=== PATIENT | female | born 1955 | race American Indian/Alaskan Native ===

== ENCOUNTER 2017-01-29 06:05 | Inpatient (IN) | payer MEDICAID ==
[~2017-01-29 06:05] MED LIST: ANCEF/STERILE WATER 2 GM/20 ML 2 GM/20 ML SYRINGE IV NR; NACL 0.9% 1000 ML 1,000 ML IV SCH; NACL P/F VIAL (10 ML) ONE; PEPCID PO NR
[2017-01-29] MEDS ORDERED: NACL BACTERIOSTATIC INFILTRATI ONE (06:47)
--- NOTE | 2017-01-29 07:30 | Anesthesia Consultation ---
Anesthesia Consult and Med Hx Date of service: 01/29/17 - Airway Anesthetic Teeth Evaluation: Poor ROM Head & Neck: Adequate Mental/Hyoid Distance: Adequate Mallampati Class: Class II Intubation Access Assessment: Probably Good - Pulmonary Exam CTA: Yes - Cardiac Exam Cardiac Exam: RRR - Pre-Operative Health Status ASA Pre-Surgery Classification: ASA4 Proposed Anesthetic Plan: General, MAC - Pulmonary Hx Smoking: Yes (quit in 11/2016) COPD: Yes Home Oxygen Therapy: No Hx Sleep Apnea: No - Cardiovascular System Hx Hypertension: Yes (5YRS) Hx Coronary Artery Disease: No - Central Nervous System Hx Seizures: No CVA: No - Endocrine Hx Renal Disease: Yes (last dialysis sunday) Hx End Stage Renal Disease: Yes Hx Non-Insulin Dependent Diabetes: No Hx Hypothyroidism: No - Other Systems Hx Cancer: No Hx Obesity: Yes
--- NOTE | 2017-01-29 07:31 | Anesthesia Day of Surgery ---
Anesthesia Day of Surgery - Day of Surgery Patient Examined: Yes Patient H&P Reviewed: Yes Patient is NPO: Yes
[2017-01-29] MEDS ORDERED: DIPRIVAN 10 MG/ML IV ONE ×2 (07:56→08:46)
[2017-01-29] MEDS ORDERED: SUBLIMAZE ONE (07:56)
[2017-01-29] MEDS ORDERED: VERSED ONE (07:56)
[2017-01-29] MEDS ORDERED: ePHEDrine SULFATE ONE (08:34)
[2017-01-29] MEDS ORDERED: SODIUM BICARBONATE IV ONE (08:42)
[2017-01-29] MEDS ORDERED: SODIUM BICARBONATE ONE ×2 (08:47→08:48)
[2017-01-29] MEDS ORDERED: HEPARIN 10,000 UNITS/10 ML 2,000 UNIT in NACL 0.9% 500 ML 500 ML IR ONE (09:07)
[2017-01-29] MEDS ORDERED: RIFADIN 600 MG in NACL 0.9% 50 ML IR ONE (09:07)
[2017-01-29] MEDS ORDERED: MARCAINE 0.5% INFILTRATI ONE (09:11)
[2017-01-29] MEDS ORDERED: NACL 0.9% IR ONE (09:11)
[2017-01-29] MEDS ORDERED: XYLOCAINE MPF 2% ONE (09:12)
[2017-01-29] MEDS ORDERED: ZEMURON IV ONE (09:12)
[2017-01-29] MEDS ORDERED: QUELICIN ONE (09:12)
[2017-01-29] MEDS ORDERED: DECADRON ONE (09:12)
[2017-01-29] MEDS ORDERED: NORCO 5/325 PO PRN (09:14)
[2017-01-29] MEDS ORDERED: DILAUDID IV PRN (09:14)
[2017-01-29] MEDS ORDERED: ZOFRAN IV PRN (09:14)
--- NOTE | 2017-01-29 10:24 | Short Stay Summary ---
Short Stay Documentation Date of service: 01/29/17 Narrative H&P: See H&P - History H&P: obtained from office - Allergies and Medications Current Medications: Allergies No Known Allergies Allergy (Unverified 01/25/17 09:02) Home Medications Medication Instructions Recorded Confirmed Last Taken Type ALBUTEROL Inhaler [Proair] 2 puff IH QID PRN 01/25/17 01/25/17 01/28/17 18:00 History Aspirin [Adult Low Dose Aspirin EC] 81 mg PO QDAY 01/25/17 01/25/17 01/28/17 History AtorvaSTATin [Lipitor] 40 mg PO QDAY 01/25/17 01/25/17 01/28/17 History Calcium Acetate [Calcium Acetate] 667 mg PO TID 01/25/17 01/25/17 01/28/17 History Gabapentin [Gabapentin] 300 mg PO BID 01/25/17 01/29/17 01/27/17 History Ipratropium (Nf) [Atrovent HFA 2 puff IH BID 01/25/17 01/25/17 01/28/17 19:30 History 17MCG/PUFF] Midodrine HCl 10 mg PO QDAY 01/25/17 01/29/17 01/28/17 09:30 History Active Medications Acetaminophen/Hydrocodone Bitart ([place] 5/325) 1 each PO ONCE PRN PRN Reason: Pain, Moderate (4-6) Stop: 01/29/17 18:00 Famotidine (Pepcid) 20 mg PO PREOP NR Stop: 01/29/17 23:00 Last Admin: 01/29/17 07:20 Dose: 20 mg Hydromorphone HCl (Dilaudid) 0.25 mg IV Q10MIN PRN PRN Reason: Pain, Moderate (4-6) Stop: 01/29/17 18:00 Cefazolin Sodium (Ancef/Sterile Water 2 Gm/20 Ml) 2 gm in 20 mls @ 80 mls/hr IV PREOP NR PRN Reason: Protocol Stop: 01/29/17 23:59 Sodium Chloride (Nacl 0.9% 1000 Ml) 1,000 mls @ 42 mls/hr IV DIRECT ALEXANDER Last Admin: 01/29/17 07:30 Dose: 42 mls/hr Ondansetron HCl (Zofran) 4 mg IV ONCE PRN PRN Reason: Nausea And Vomiting Stop: 01/29/17 18:00 - Brief post op/procedure progress note Date of procedure: 01/29/17 Pre-op diagnosis: End-Stage Renal Disease Post-op diagnosis: same Procedure: Creation of Left Brachial Artery to Axillary Vein AV Graft with 6 mm Bovine Graft Anesthesia: BEN Surgeon: AMBER SANDHU Estimated blood loss: minimal Pathology: none Condition: stable - Disposition Condition at discharge: Good Disposition: DISCHARGED TO HOME OR SELFCARE Short Stay Discharge Plan Activity: other (no heavy lifting with left arm) Wound: open to air, keep clean and dry, other (okay to wash the wound with soap and water but do not soak in water) Follow up with: AMBER SANDHU MD [Staff Physician] - 14 Days Prescriptions: HYDROcodone/APAP 7.5-325 [Tarlton 7.5/325] 1 each PO Q6HR PRN #60 tablet PRN Reason: Pain
--- NOTE | 2017-01-29 10:27 | Operative Report ---
Operative Report Operative Report: Date of procedure: 01/29/2017 Pre-operative diagnosis: End-Stage Renal Disease Post-operative diagnosis: Same Procedure(s): 1. Creation of Left Brachial Artery to Axillary Vein AV Graft with 6 mm Bovine Graft Surgeon: Fernando Salazar MD Watch Leader: None Anesthesia: General Endotracheal Anesthesia EBL: Minimal Counts: Correct Complications: None Condition: Stable Findings: Successful Creation of Left Arm AV Graft Specimen: None Indication: The patient is a 61-year-old female with a history of end-stage renal disease who is currently on hemodialysis through a right internal jugular permacath. She is in need of long-term access and a vein size and demonstrated that her veins were too small for creation of an AV fistula. She was offered the creation of an AV graft. She was given the risks, benefits, and alternative procedures and consented to procedure. Description of Procedure: The patient was brought to the operating room and laid in supine position after general endotracheal anesthesia was achieved the left arm was prepped and draped in normal sterile fashion. A longitudinal incision was made on the medial aspect of the arm just proximal to the antecubital crease and carried down to the brachial artery using sharp dissection. The brachial artery was dissected out circumferentially both proximally and distally and controlled with vessel loops. A second incision was created in longitudinal fashion on the medial aspect of the arm just distal to the axillary crease and carried down to the axillary vein using sharp dissection. Axillary vein was dissected out circumferentially and controlled with a vessel loop. I then used a Aicha- Wick tunneler to tunnel from the brachial artery incision to the axillary vein incision and then pulled a 6 mm bovine through the tunnel. I infused with heparinized saline to ensure that it was not twisted or kinked. I put the brachial artery vessel loops on tension controlling the flow and then created an arteriotomy using an 11 blade and Campbell scissors. I beveled the graft and created an end-to-side anastomosis using 6-0 Prolene running fashion. I clamped the graft just proximal to the anastomosis and then released the vessel loops restoring flow in the brachial artery. I placed quick clot in incision to achieve hemostasis. I cut the proximal end of the graft to the appropriate length and beveled the graft in preparation for a venous anastomosis. I controlled the axillary vein a Satinsky clamp and created a venotomy using an 11 blade and Campbell scissors. I created an end to side anastomosis using a 6-0 Prolene in running fashion. Prior to completing the anastomosis I flushed the graft to ensure there was no thrombus and then completed the anastamosis. I released all clamps allowing flow into the AV graft which had an excellent thrill. I packed the wound with quick clot to achieve hemostasis. I anesthetized both wounds with Marcaine and then closed both wounds in 2 layers using 3-0 Vicryl in running fashion in the deep dermal layer and 4-0 Monocryl in running fashion the subcuticular layer. I dressed both wounds with Surgicel. The patient tolerated the procedure well all sponge needle and instrument counts were correct the patient was taken to recovery in stable condition.
[2017-01-29] MEDS ORDERED: ROMAZICON IV ONE (10:29)
[2017-01-29] MEDS ORDERED: NARCAN 0.4 MG/1 ML ONE (10:29)
[2017-01-29] MEDS ORDERED: BLOXIVERZ ONE (10:41)
[2017-01-29] MEDS ORDERED: ROBINUL ONE (10:42)
--- NOTE | 2017-01-29 11:01 | Progress Note ---
Subjective Date of service: 01/29/17 Principal diagnosis: Delayed emergence from anesthesia Interval history: 61 yo s/p left creation of AV fistula done under general anesthesia. Initially LMA #4 tried unable to get good seal then switched to LMA #5. Still unable to get a good seal. Intubated the patient. Post op patient not waking up. Not taking in good tidal volumes. Given Narcan, Flumazenil and Reversal agent for paralytics. Patient still not breathing on her own. Decided to transport patient to PACU on ventilator until she is more awake and breathing on her own. Objective - Constitutional Vitals: Vital Signs - 12hr 01/29/17 01/29/17 01/29/17 06:45 06:50 07:54 Temperature 99.1 F 99.1 F Pulse Rate 76 99 H 99 H Respiratory 16 16 Rate Blood Pressure 122/64 122/64 O2 Sat by Pulse 88 99 Oximetry - Labs CBC & Chem 7: 01/29/17 06:55 Labs: Abnormal lab results 01/29/17 Range/Units 07:04 POC Glucose 114 H (70-105)
[2017-01-29] MEDS ORDERED: PROVENTIL IH ONE (11:46)
--- NOTE | 2017-01-29 12:34 | Post Anesthesia Evaluation ---
- Post Anesthesia Evaluation Patient Participated: Yes Airway Patent: Yes Stable Respiratory Function: Yes Temp > 96.8F: Yes Pain Manageable: Yes Adequeate Hydration: Yes Anesthesia Complications: No Block Receding Appropriately: Not Applicable
--- NOTE | 2017-01-29 21:12 | Admit Criteria Form ---
Admission Criteria Documentation: AMBULATORY SURGERY EXCEPTION CRITERIA Ambulatory Surgery Exception Criteria ( Place 'X' for any and all applicable criteria): Surgery or procedure performed on ambulatory basis may require inpatient stay for[A] ANY ONE of the following(1)(2)(3)(4)(5)(6)(7)(8)(9): [] I. A preoperative situation, condition, or finding that warrants inpatient stay as indicated by ANY ONE of the following: [] a) Inpatient care needed because of severity of a disease or condition rather than the surgery (eg, severe cardiac or respiratory disease, severe infection) (15) (16 ) (17) (18) [] b) Emergent procedure (eg, angioplasty for acute ischemia)(19) [] c) Complex surgical approach or situation as indicated by ANY ONE of the following(3): [] i) Open approach needed instead of usual endoscopic, transcatheter, or other less invasive procedure [] ii) Difficult approach because of previous operation [] iii) Airway monitoring required after open neck procedures(20)(21) [] iv) Large mass requiring unusually extensive dissection [] v) Additional complicating feature requiring inpatient care (eg, drain management)(22(23): [] d) Major surgery in a pt with high anesthetic risk as indicated by ANY ONE of the following (2)(3)(5)(7)(8): [] i) ASA risk class III or higher (severe systemic disease impairing function) [D] [] ii) Advanced age (eg, older than 85 years)(14)(24) [] iii) Symptomatic heart failure(25) [] iv) Symptomatic asthma or COPD(8)(21) [] v) Morbid obesity with hemodynamic or respiratory problems(20)( 21)(26)(27) [] vi) Obstructive sleep apnea(20)(21) [] vii) Former premature infants who are younger than 60 weeks [] viii) High risk for severe postoperative abnormalities (eg, severe postoperative hypocalcemia after parathyroidectomy for severe hyperparathyroidism)(27)( 28) [] ix) Unstable angina(25) [] e) Drug-related risk requiring inpatient stay as indicated by ANY ONE of the following(5)(10)(14)(32)(33) [] i) Procedure requires discontinuing drugs or other therapy (eg , antiarrhythmic medication, antiseizure medication), which necessitates inpatient observation or treatment.(18)(31) [] ii) Major surgery and high risk drug use as indicated by ANY ONE of the following: [] 1) Active abuse of cocaine or similar drug [] 2) Monoamine oxidase inhibitor use [] 3) Other drug identified as posing risk [] f) Inadequate outpatient care situation as indicated by ANY ONE of the following(5)(10)(14)(32)(33) [] i) Patient lives remote from medical facility and procedure has urgent complication potential, and temporary nearby residence cannot be arranged [] ii) Patient will have postprocedure incapacitation and inadequate assistance at home, or alternative level of care cannot be arranged. [] iii) Patient will have long general anesthesia or procedure side effect resolution time, and competent person to stay with patient on first postoperative night at home or alternative level of care cannot be arranged. []iv) Other inadequate outpatient situation that cannot be handled by other means [X] II. A perioperative event, condition, or finding that warrants inpatient stay as indicated by ANY ONE of the following (1)(2)(3): [X] a) Inadequate physiologic recovery: cardiovascular, respiratory, or hemodynamic status not normal or near preoperative baseline(18) [] b) Hemodynamic instability [] c) Patient not alert with near normal or baseline mental status [] d) Temperature not normal or as expected and not appropriate for outpatient treatment of condition [] e) Ambulatory or appropriate activity level status not yet achieved post procedure [E](34)(35)(36) [] f) Operative site not appropriate (eg, unexpected or excessive drainage or bleeding) [] g) Postoperative effects not resolved or adequately managed (eg, significant pain or vomiting not appropriate for outpatient or next level of care)(10)(12) [] h) Complicating features requiring inpatient care as indicated by ANY ONE of the following(37): [] i) Severe complications of procedure (eg, bowel injury, airway compromise, vascular injury,severe hemorrhage) [] ii) Extensive (eg, dissection far beyond usual scope of procedure ) or prolonged (eg, 120 minutes beyond usual) surgery needed requiring inpatient postoperative care [] iii) Conversion to an open or complex procedure that requires inpatient care (eg, open vs laparoscopic cholecystectomy, abdominal vs vaginal hysterectomy)(38) [] iv) Comorbid condition or test result identified during or post procedure that requires inpatient care (7) [] v) Malignant hyperthermia(30) [] vi) Other complicating feature requiring inpatient care(22)(23) Inpatient stay may be needed until ALL of the following are present (1)(2)(3)(4) (5)(6)(10)(14)(33)(40): []a) Physiologic recovery: cardiovascular, respiratory, and hemodynamic status normal or near preoperative baseline []b) Hemodynamic stability []c) Patient alert, with near normal or baseline mental status []d) Temperature appropriate: patient afebrile or temperature appropriate for outpt treatment of condition []e) Activity level appropriate: ambulatory or appropriate activity level post procedure []f) Operative site appropriate as indicated by ALL of the following: []i) Site dry or with expected drainage []ii) Any blood noted is as expected for procedure. []g) Postoperative effects resolved or managed as indicated by ALL of the following: []i) Pain management appropriate for outpatient (or next level of) care(10) []ii) Minimal nausea and vomiting: if present, successfully treated with oral medication(12) []iii) Headache, dizziness, or drowsiness (if present) are mild. []h) Voiding status acceptable as indicated by ANY ONE of the following: []i) Voiding spontaneously []ii) No voiding but instructions given for follow-up in 6 to 8 hours []iii) Urinary catheter in place, and instructions given for follow-up []i) Complicating features requiring inpatient care manageable at a lower level of care(37) []j) Comorbid conditions manageable at a lower level of care(37) The original [employer] content created by [employer] has been revised. The portions of the content which have been revised are identified through the use of italic text or in bold, and [employer] has neither reviewed nor approved the modified material. All other unmodified content is copyright [employer]. Please see references footnoted in the original [employer] edition 2016 Admission Criteria Met: Yes
--- NOTE | 2017-01-29 23:57 | Event Note ---
Date: 01/29/17 See H/p in reports Ac resp failure Copd exacerbation Admitted from PACU after AV fistula creation b/c the patient was persistently hypoxic HLD Hypotension
[2017-01-30] MEDS ORDERED: DULCOLAX PR PRN (00:03)
[2017-01-30] MEDS ORDERED: MILK OF MAGNESIA PO PRN (00:03)
[2017-01-30] MEDS ORDERED: TYLENOL PO PRN (00:03)
[2017-01-30] MEDS ORDERED: PERCOCET 5/325 PO PRN (00:03)
[2017-01-30] MEDS ORDERED: ZOFRAN IV PRN (00:03)
[2017-01-30] MEDS ORDERED: DILAUDID IV PRN (00:03)
[2017-01-30] MEDS ORDERED: DUONEB 0.5 MG-3 MG/3 ML SOLN IH PRN (00:05)
[2017-01-30] MEDS ORDERED: PROVENTIL IH PRN (00:17)
--- NOTE | 2017-01-30 00:40 | History and Physical Report ---
CHIEF COMPLAINT: 1. Shortness of breath. 2. Persistent decreased oxygen saturations postop. HISTORY OF PRESENT ILLNESS: A 61-year-old -Martiniquais female with longstanding history of smoking about 40 years, stopped this year 11/2016, could not be extubated after surgery. With difficulty the patient was extubated and postoperatively, the patient has been persistently hypoxic, needed to 2-3 liters nasal cannula oxygen. The patient has severe COPD and the patient is on inhalers, Atrovent and albuterol inhalers on a regular basis. Does not have any sample checker. Consistent complaint is shortness of breath and wheezing. No fever, no chills, no cough productive of sputum. Sats are running around . PAST MEDICAL HISTORY: Significant for hyperlipidemia, hypotension, COPD, peripheral neuropathy, end-stage renal disease. CURRENT MEDICATIONS: Albuterol inhaler 2 puffs q.i.d., aspirin 81 mg daily, Lipitor 40 mg daily, gabapentin 300 mg b.i.d., Atrovent inhalers 2 puffs b.i.d., midodrine 10 mg daily. SOCIAL HISTORY: Smoking for 40 years, stopped 2 months ago in 11/2016. Alcohol occasionally. FAMILY HISTORY: Significant for hypertension. REVIEW OF SYSTEMS: Significant for shortness of breath, hypoxia, wheezing. Otherwise, review of systems is essentially negative. PHYSICAL EXAMINATION: GENERAL: Elderly female, cooperative during examination. VITAL SIGNS: Blood pressure is , temperature is 97.4, pulse is 72, respiratory rate is 20. HEENT: Unremarkable. Pupils equal and reactive. NECK: Supple, no lymphadenopathy, no thyromegaly. Mild use of accessory muscles of respiration present. CHEST AND LUNGS: Bilateral inspiratory and expiratory rhonchi present. Moderate air entry. CARDIOVASCULAR: S1, S2 heard. No gallop, no murmur, no rub. Apical impulse in left fifth intercostal space and midclavicular line. ABDOMEN: Soft and benign. No hepatosplenomegaly. No guarding. No rigidity. Hernial orifices are normal. EXTREMITIES: Good pedal pulses. No pedal edema. AV fistula placed. CENTRAL NERVOUS SYSTEM: Alert and oriented x 4, nonfocal exam. LABORATORY DATA: Pending. ASSESSMENT AND PLAN: 1. Acute respiratory failure secondary to chronic obstructive pulmonary disease. The patient needs DuoNeb, IV Solu-Medrol, and IV Levaquin and oxygen. The patient may be weaned off in a couple of days and discharged in 48 hours. 2. Hypotension. Continue midodrine. 3. Hyperlipidemia. We will hold Lipitor 40 mg daily. 4. End-stage renal disease. Continue calcium acetate. Also, Nephrology consul. 5. Deep venous thrombosis prophylaxis, SCDs only. No heparin or Lovenox. 6. Peripheral neuropathy. Continue gabapentin 300 mg twice a day. In summary, the patient has acute respiratory failure and COPD exacerbation. The patient to be on DuoNeb, Solu-Medrol, and IV Levaquin. Possible admission for 24-48 hours. The patient may improve well because the patient was asymptomatic before surgery. [facility]# [id number] GIANCARLO/JOSHUA
[2017-01-30] MEDS ORDERED: PEPCID IV SCH (01:00)
[2017-01-30] MEDS ORDERED: NACL 0.9% 1000 ML 1,000 ML IV SCH (01:00)
--- NOTE | 2017-01-30 01:32 | Admit Criteria Form ---
Admission Criteria Documentation: AMBULATORY SURGERY EXCEPTION CRITERIA Ambulatory Surgery Exception Criteria ( Place 'X' for any and all applicable criteria): Surgery or procedure performed on ambulatory basis may require inpatient stay for[A] ANY ONE of the following(1)(2)(3)(4)(5)(6)(7)(8)(9): [X] I. A preoperative situation, condition, or finding that warrants inpatient stay as indicated by ANY ONE of the following: [] a) Inpatient care needed because of severity of a disease or condition rather than the surgery (eg, severe cardiac or respiratory disease, severe infection) (15) (16 ) (17) (18) [] b) Emergent procedure (eg, angioplasty for acute ischemia)(19) [] c) Complex surgical approach or situation as indicated by ANY ONE of the following(3): [] i) Open approach needed instead of usual endoscopic, transcatheter, or other less invasive procedure [] ii) Difficult approach because of previous operation [] iii) Airway monitoring required after open neck procedures(20)(21) [] iv) Large mass requiring unusually extensive dissection [] v) Additional complicating feature requiring inpatient care (eg, drain management)(22(23): [X] d) Major surgery in a pt with high anesthetic risk as indicated by ANY ONE of the following (2)(3)(5)(7)(8): [X] i) ASA risk class III or higher (severe systemic disease impairing function) [D] [] ii) Advanced age (eg, older than 85 years)(14)(24) [] iii) Symptomatic heart failure(25) [] iv) Symptomatic asthma or COPD(8)(21) [] v) Morbid obesity with hemodynamic or respiratory problems(20)( 21)(26)(27) [] vi) Obstructive sleep apnea(20)(21) [] vii) Former premature infants who are younger than 60 weeks [] viii) High risk for severe postoperative abnormalities (eg, severe postoperative hypocalcemia after parathyroidectomy for severe hyperparathyroidism)(27)( 28) [] ix) Unstable angina(25) [] e) Drug-related risk requiring inpatient stay as indicated by ANY ONE of the following(5)(10)(14)(32)(33) [] i) Procedure requires discontinuing drugs or other therapy (eg , antiarrhythmic medication, antiseizure medication), which necessitates inpatient observation or treatment.(18)(31) [] ii) Major surgery and high risk drug use as indicated by ANY ONE of the following: [] 1) Active abuse of cocaine or similar drug [] 2) Monoamine oxidase inhibitor use [] 3) Other drug identified as posing risk [] f) Inadequate outpatient care situation as indicated by ANY ONE of the following(5)(10)(14)(32)(33) [] i) Patient lives remote from medical facility and procedure has urgent complication potential, and temporary nearby residence cannot be arranged [] ii) Patient will have postprocedure incapacitation and inadequate assistance at home, or alternative level of care cannot be arranged. [] iii) Patient will have long general anesthesia or procedure side effect resolution time, and competent person to stay with patient on first postoperative night at home or alternative level of care cannot be arranged. []iv) Other inadequate outpatient situation that cannot be handled by other means [] II. A perioperative event, condition, or finding that warrants inpatient stay as indicated by ANY ONE of the following (1)(2)(3): [] a) Inadequate physiologic recovery: cardiovascular, respiratory, or hemodynamic status not normal or near preoperative baseline(18) [] b) Hemodynamic instability [] c) Patient not alert with near normal or baseline mental status [] d) Temperature not normal or as expected and not appropriate for outpatient treatment of condition [] e) Ambulatory or appropriate activity level status not yet achieved post procedure [E](34)(35)(36) [] f) Operative site not appropriate (eg, unexpected or excessive drainage or bleeding) [] g) Postoperative effects not resolved or adequately managed (eg, significant pain or vomiting not appropriate for outpatient or next level of care)(10)(12) [] h) Complicating features requiring inpatient care as indicated by ANY ONE of the following(37): [] i) Severe complications of procedure (eg, bowel injury, airway compromise, vascular injury,severe hemorrhage) [] ii) Extensive (eg, dissection far beyond usual scope of procedure ) or prolonged (eg, 120 minutes beyond usual) surgery needed requiring inpatient postoperative care [] iii) Conversion to an open or complex procedure that requires inpatient care (eg, open vs laparoscopic cholecystectomy, abdominal vs vaginal hysterectomy)(38) [] iv) Comorbid condition or test result identified during or post procedure that requires inpatient care (7) [] v) Malignant hyperthermia(30) [] vi) Other complicating feature requiring inpatient care(22)(23) Inpatient stay may be needed until ALL of the following are present (1)(2)(3)(4) (5)(6)(10)(14)(33)(40): []a) Physiologic recovery: cardiovascular, respiratory, and hemodynamic status normal or near preoperative baseline []b) Hemodynamic stability []c) Patient alert, with near normal or baseline mental status []d) Temperature appropriate: patient afebrile or temperature appropriate for outpt treatment of condition []e) Activity level appropriate: ambulatory or appropriate activity level post procedure []f) Operative site appropriate as indicated by ALL of the following: []i) Site dry or with expected drainage []ii) Any blood noted is as expected for procedure. []g) Postoperative effects resolved or managed as indicated by ALL of the following: []i) Pain management appropriate for outpatient (or next level of) care(10) []ii) Minimal nausea and vomiting: if present, successfully treated with oral medication(12) []iii) Headache, dizziness, or drowsiness (if present) are mild. []h) Voiding status acceptable as indicated by ANY ONE of the following: []i) Voiding spontaneously []ii) No voiding but instructions given for follow-up in 6 to 8 hours []iii) Urinary catheter in place, and instructions given for follow-up []i) Complicating features requiring inpatient care manageable at a lower level of care(37) []j) Comorbid conditions manageable at a lower level of care(37) The original [employer] content created by [employer] has been revised. The portions of the content which have been revised are identified through the use of italic text or in bold, and [facility] [employer] has neither reviewed nor approved the modified material. All other unmodified content is copyright [employer]. Please see references footnoted in the original [employer] edition 2016 Admission Criteria Met: Yes
[2017-01-30] MEDS: DUONEB 0.5 MG-3 MG/3 ML SOLN IH SCH ×4 (01:56→21:49)
[2017-01-30 02:00] LABS: Basophils % (Auto) 0.4 % (0.0-1.8); Mean Corpuscular HGB Conc 29 % (30-34); Mean Corpuscular Hemoglobin 27 pg (28-32); Mean Corpuscular Volume 94 fl (79-97); Red Blood Count 2.71 M/mm3 (3.65-5.03); Red Cell Distribution Width 19.1 % (13.2-15.2); White Blood Count 10.7 K/mm3 (4.5-11.0)
[2017-01-30 02:01] LABS: Hematocrit 25.6 % (30.3-42.9); Hemoglobin 7.3 gm/dl (10.1-14.3)
[2017-01-30 02:20] LABS: Albumin 2.6 g/dL (3.9-5); Albumin/Globulin Ratio 0.5 %; BUN/Creatinine Ratio 9.36; Bilirubin,Total 0.2 mg/dL (0.1-1.2); Chloride 98.7 mmol/L (98-107); Potassium 5.2 mmol/L (3.6-5.0); Total Protein 7.5 g/dL (6.3-8.2)
[2017-01-30 02:37] LABS: ISTAT Base Excess -1; ISTAT HCO3 28.3; ISTAT PCO2 89.5 (35-45); ISTAT PH 7.108 (7.35-7.45); ISTAT PO2 120 (80-105); ISTAT SO2 96; ISTAT TCO2 31
[2017-01-30 03:27] LABS: ISTAT Base Excess -1; ISTAT HCO3 28.1; ISTAT PCO2 87.1 (35-45); ISTAT PH 7.117 (7.35-7.45); ISTAT PO2 73 (80-105); ISTAT SO2 87; ISTAT TCO2 31
[2017-01-30 03:57] LABS: Platelet Count 181 K/mm3 (140-440)
[2017-01-30] MEDS: PHOSLO PO SCH ×2 (08:00→11:57)
[2017-01-30] MEDS ORDERED: LEVAQUIN 750MG/150ML 750 MG/150 ML BAG IV SCH (08:00)
[2017-01-30] MEDS ORDERED: NEURONTIN PO SCH (10:00)
[2017-01-30] MEDS ORDERED: PROAMATINE PO SCH (10:00)
[2017-01-30] MEDS ORDERED: LEVAQUIN 500MG/100ML 500 MG/100 ML BAG IV SCH (12:00)
--- NOTE | 2017-01-30 13:08 | Discharge Summary ---
Providers - Providers Date of Admission: 01/29/17 17:30 Date of discharge: 01/31/17 Attending physician: FERNANDO SALAZAR 01/30/17 00:03 Consult to Physician [CONS] Routine Consulting Provider: KATHLEEN RIOS Reason For Exam: Av fistula Place consult to:: DR Christie Notified:: a service Phone number called:: [phone] Was contact made?: Yes If yes, spoke with:: justice Time called:: 08:31 Primary care physician: PASSENGER SOLICITOR Hospitalization Condition: Good Hospital course: Patient is a 61-year-old woman with day history of COPD, dyslipidemia and end- stage renal disease who is currently on hemodialysis through a right internal jugular permacath; she presented to [facility] for creation of a left upper arm AV graft by Dr. Fernando Salazar. Patient was intubated for the procedure and postop she was not waking up, not taking good tidal volumes; she was given Narcan, flumazenil, and Reversal agent for paralytics; however, she still wasn't waking up. She was sent to PACU on ventilator admission to ICU where she was extubated. She was sent to the medical floor yesterday on BiPAP, and she was weaned off BiPAP but she still oxygen and will try to set that up to be discharged home today. She has hemodialysis tomorrow at [facility] and she wants to go home today. Dr. Fernando Salazar is already discharged tomorrow once oxygen has been set up. Recorded pulse ox 84% on room air. 1. Acute hypoxic respiratory failure due to COPD exacerbation 2. Acute COPD exacerbation 3. End-stage renal disease status post creation of left arm AV graft 4. Morbid obesity BMI 48.2 Hct dropped most likely Anemia related to ESRD, I recommended blood transfusion but family and patient do not want want blood transfusion, instead they want to go to [place] for HD tomorrow and get blood there. Risk explained and they voiced understanding. Disposition: DC/TX HOME UNDER HOME HEALTH Time spent for discharge: 37 minutes Core Measure Documentation - Palliative Care Palliative Care/ Comfort Measures: Not Applicable - Core Measures Any of the following diagnoses?: none - VTE Discharge Requirements Deep Vein Thrombosis/Pulmonary Embolism Present on Admission: No Has pt received <5 days of overlap therapy or INR<2.0: No Anticoagulant overlap therapy prescribed at discharge: No Contraindication No Overlap Therapy order at DC: Not Indicated Exam - Physical Exam Narrative exam: GEN: WDWN, NAD, AWAKE, ALERT, ORIENTATED 3 CVS: RRR, NORMAL S1S2 LUNGS/CHEST: Wheezing bilaterally, NORMAL CHEST EXPANSION B, GOOD AIR ENTRY B ABD: SOFT NTND, GBS, NO REBOUND OR GUARDING MSK: FROM X 4 EXTREMITIES NEURO: CN 2-12 GROSSLY INTACT, NO new FOCAL DEFICITS PSY: CALM - Constitutional Vitals: Temp Pulse Resp BP Pulse Ox 97.4 F L 69 24 110/48 100 01/30/17 08:00 01/30/17 08:40 01/30/17 08:40 01/30/17 08:00 01/30/17 10:58 Plan Activity: no driving until cleared by PCP (no strenous activites until cleared by PCP. ) Diet: renal Special Instructions: home oxygen via Durable Medical Equipment Needed Upon Discharge: Oxygen, Nebulizer Follow up with: FERNANDO SALAZAR MD [Staff Physician] - 14 Days Forms: Outpatient Surgery DC Inst. Prescriptions: RX: ALBUTEROL NEB's [Proventil 0.083% NEBS] 2.5 mg IH Q3HRT PRN #30 nebu PRN Reason: Shortness Of Breath RX: Azithromycin [Zithromax Z-ADOLFO] 1 dose PO DAILY #1 pack HYDROcodone/APAP 7.5-325 [[place] 7.5/325] 1 each PO Q6HR PRN #60 tablet PRN Reason: Pain methylPREDNISolone [Medrol] 1 dose PO DAILY #1 pack
--- NOTE | 2017-01-30 13:48 | Consultation ---
History of Present Illness - Reason for Consult Consult date: 01/30/17 end stage renal disease, hyperkalemia, other (Anemia) - History of Present Illness Patient is a 61-year-old AAF with history significant for Morbid Obesity, Type 2 DM, HTN, COPD, Dyslipidemia, suspected CEFERINO and ESRD on hemodialysis(TTS) through the right internal jugular tunnel catheter was admitted yesterday and underwent creation of left arm AVG by Dr. Fernando Salazar. Patient was intubated for the procedure and postop she was not waking up. Patient was given Narcan, flumazenil, and Reversal agent for paralytics. She was sent to ICU where she was extubated, subsequently she was sent to the medical floor yesterday on BiPAP. Patient was weaned off BiPAP but she is hypoxic on room air with pulse ox of 84%. Patient was started on hemodialysis about 2 months ago. She is a poor historian and unable to obtain any information from her. History is obtained from previous documentation and talking to her grand daughters. Past History Past Medical History: anemia, diabetes, dialysis, ESRD, GERD, hypertension, hyperlipidemia, renal failure Social history: lives with family. denies: smoking, alcohol abuse, IV drug use Medications and Allergies Allergies Allergy/AdvReac Type Severity Reaction Status Date / Time No Known Allergies Allergy Unverified 01/25/17 09:02 Home Medications Medication Instructions Recorded Confirmed Last Taken Type ALBUTEROL Inhaler [ProAir HFA 2 puff IH QID PRN 01/25/17 01/25/17 01/28/17 18: 00 History Inhaler] Aspirin [Adult Low Dose Aspirin EC] 81 mg PO QDAY 01/25/17 01/25/17 01/28/17 History AtorvaSTATin [Lipitor] 40 mg PO QDAY 01/25/17 01/25/17 01/28/17 History Calcium Acetate 667 mg PO TID 01/25/17 01/25/17 01/28/17 History Gabapentin 300 mg PO BID 01/25/17 01/29/17 01/27/17 History Ipratropium (Nf) [Atrovent HFA 2 puff IH BID 01/25/17 01/25/17 01/28/17 19:30 History 17MCG/PUFF] Midodrine HCl 10 mg PO QDAY 01/25/17 01/29/17 01/28/17 09:30 History HYDROcodone/APAP 7.5-325 [[place] 1 each PO Q6HR PRN #60 tablet 01/29/17 Unknown Rx 7.5/325] ALBUTEROL NEB's [Proventil 0.083% 2.5 mg IH Q3HRT PRN #30 nebu 01/30/17 Unknown Rx NEBS] Azithromycin [Zithromax Z-ADOLFO] 1 dose PO DAILY #1 pack 01/30/17 Unknown Rx methylPREDNISolone [Medrol] 1 dose PO DAILY #1 pack 01/30/17 Unknown Rx Active Meds: Active Medications Acetaminophen (Tylenol) 650 mg PO Q4H PRN PRN Reason: Pain MILD(1-3)/Fever >100.5/OSMAN Albuterol (Proventil) 2.5 mg IH Q3HRT PRN PRN Reason: Shortness Of Breath Albuterol/Ipratropium (Duoneb 0.5 Mg-3 Mg/3 Ml Soln) 1 ampul IH Q6HRT [facility] Last Admin: 01/30/17 08:30 Dose: 1 ampul Bisacodyl (Dulcolax) 10 mg HI QDAY PRN PRN Reason: Constipation unrelieved by MOM Calcium Acetate (Phoslo) 667 mg PO TIDAC [facility] Last Admin: 01/30/17 11:57 Dose: 667 mg Famotidine (Pepcid) 20 mg IV DAILY [facility] Gabapentin (Neurontin) 300 mg PO BID [facility] Last Admin: 01/30/17 11:58 Dose: 300 mg Hydromorphone HCl (Dilaudid) 0.5 mg IV Q3H PRN PRN Reason: Pain , Severe (7-10) Sodium Chloride (Nacl 0.9% 1000 Ml) 1,000 mls @ 75 mls/hr IV DIRECT [facility] Levofloxacin/Dextrose (Levaquin 500mg/100ml) 500 mg in 100 mls @ 100 mls/hr IV Q48H [facility] Last Admin: 01/30/17 12:03 Dose: 100 mls/hr Influenza Virus Vaccine Quadrival (Fluarix Quad [id number](36 Mos+)) 60 mcg IM .ONCE ONE Stop: 01/31/17 12:01 Magnesium Hydroxide (Milk Of Magnesia) 30 ml PO Q4H PRN PRN Reason: Constipation Methylprednisolone Sodium Succinate (Solu-Medrol) 40 mg IV Q8H [facility] Last Admin: 01/30/17 02:00 Dose: 40 mg Midodrine (Proamatine) 10 mg PO QDAY [facility] Last Admin: 01/30/17 11:56 Dose: 10 mg Ondansetron HCl (Zofran) 4 mg IV Q8H PRN PRN Reason: N/V unrelieved by Reglan Oxycodone/Acetaminophen (Percocet 5/325) 1 tab PO Q6H PRN PRN Reason: Pain, Moderate (4-6) Pneumococcal Polyvalent Vaccine (Pneumovax 23) 0.5 ml IM .ONCE ONE Stop: 01/31/17 12:01 Review of Systems ROS unobtainable: due to mental status Exam - Vital Signs Vital signs: Vital Signs Temp Pulse Resp BP Pulse Ox 99.1 F 76 16 122/64 88 01/29/17 06:45 01/29/17 06:45 01/29/17 06:45 01/29/17 06:45 01/29/17 06:45 - General Appearance General appearance: well-developed, well-nourished, appears stated age, obese, other (no distress, right IJ tunnel hemodialysis catheter) EENT: PERRL, mucous membranes moist, hearing intact, vision intact Neck: Present: neck supple, trachea midline, JVD/HJR Respiratory: Rales Heart: regular, S1S2, no murmurs Gastrointestinal: Present: normoactive bowel sounds, obese. Absent: tenderness , distended Integumentary: no rash, warm and dry Neurologic: no focal deficit, no asterixis, confused, disoriented Musculoskeletal: Present: other (left arm AVG, 2+ edema of both LEs noted) Psychiatric: cooperative Results - Lab Results 01/30/17 00:52 01/30/17 00:52 Most recent lab results Calcium 8.0 mg/dL (8.4-10.2) L 01/30/17 00:52 Assessment and Plan - Patient Problems (1) Hyperkalemia Current Visit: Yes Status: Acute Plan to address problem: Hemodialysis today. (2) ESRD (end stage renal disease) on dialysis Current Visit: Yes Status: Chronic Plan to address problem: Continue hemodialysis TTS schedule. (3) Anemia of renal disease Current Visit: Yes Status: Chronic Plan to address problem: Epogen prn. (4) Acute respiratory failure with hypoxia Current Visit: Yes Status: Acute Plan to address problem: On O2. Likely secondary to COPD exacerbation. (5) COPD exacerbation Current Visit: Yes Status: Acute
[2017-01-30] MEDS ORDERED: NACL 0.9% 100 ML IV PRN (13:49)
--- NOTE | 2017-01-30 15:49 | Progress Note ---
Assessment and Plan Assessment and plan: Patient is a 61-year-old woman with day history of COPD, dyslipidemia and end- stage renal disease who is currently on hemodialysis through a right internal jugular permacath; she presented to [facility] for creation of a left upper arm AV graft by Dr. Fernando Salazar. Patient was intubated for the procedure and postop she was not waking up, not taking good tidal volumes; she was given Narcan, flumazenil, and Reversal agent for paralytics; however, she still wasn't waking up. She was sent to PACU on ventilator admission to ICU where she was extubated. She was sent to the medical floor yesterday on BiPAP, and she was weaned off BiPAP but she still oxygen and will try to set that up to be discharged home today. She has hemodialysis tomorrow at [facility] and she wants to go home today. Dr. Fernando Salazar is already discharged tomorrow once oxygen has been set up. Recorded pulse ox 84% on room air. 1. Acute hypoxic respiratory failure due to COPD exacerbation 2. Acute COPD exacerbation 3. End-stage renal disease status post creation of left arm AV graft 4. Morbid obesity BMI 48.2 sat dropped to 40% RA and came up nicely with O2. 3 liters needed for home. trying to setup. d/w renal and place consult for hemodialysis today. History Interval history: Patient seen and examined. Follow up on sob which is better. Overnight uneventful. No cp, n/v or severe headaches. Imaging, old records, testing, labs , nursing notes reviewed. Plan discussed with patient. Daughters, [place] and [place] at bedside. Hospitalist Physical - Physical exam Narrative exam: GEN: WDWN, NAD, AWAKE, ALERT, ORIENTATED 3 CVS: RRR, NORMAL S1S2 LUNGS/CHEST: Wheezing bilaterally, NORMAL CHEST EXPANSION B, GOOD AIR ENTRY B ABD: SOFT NTND, GBS, NO REBOUND OR GUARDING MSK: FROM X 4 EXTREMITIES NEURO: CN 2-12 GROSSLY INTACT, NO new FOCAL DEFICITS PSY: CALM - Constitutional Vitals: Temp Pulse Resp BP Pulse Ox 97.4 F L 75 18 110/48 100 01/30/17 08:00 01/30/17 14:20 01/30/17 14:20 01/30/17 08:00 01/30/17 10:58 Results - Labs CBC & Chem 7: 03/28/17 00:52 01/30/17 00:52 Labs: Laboratory Last Values WBC 10.7 K/mm3 (4.5-11.0) 01/30/17 00:52 RBC 2.71 M/mm3 (3.65-5.03) L 01/30/17 00:52 Hgb 7.3 gm/dl (10.1-14.3) L 01/30/17 00:52 Hct 25.6 % (30.3-42.9) L 01/30/17 00:52 MCV 94 fl (79-97) 01/30/17 00:52 MCH 27 pg (28-32) L 01/30/17 00:52 MCHC 29 % (30-34) L 01/30/17 00:52 RDW 19.1 % (13.2-15.2) H 01/30/17 00:52 Plt Count 181 K/mm3 (140-440) 01/30/17 00:52 Lymph % (Auto) 10.9 % (13.4-35.0) L 01/30/17 00:52 [place] % (Auto) 4.4 % (0.0-7.3) 01/30/17 00:52 Eos % (Auto) 0.0 % (0.0-4.3) 01/30/17 00:52 Baso % (Auto) 0.4 % (0.0-1.8) 01/30/17 00:52 Lymph # 1.2 K/mm3 (1.2-5.4) 01/30/17 00:52 [place] # 0.5 K/mm3 (0.0-0.8) 01/30/17 00:52 Eos # 0.0 K/mm3 (0.0-0.4) 01/30/17 00:52 Baso # 0.0 K/mm3 (0.0-0.1) 01/30/17 00:52 Seg Neutrophils % 84.3 % (40.0-70.0) H 01/30/17 00:52 Seg Neutrophils # 9.0 K/mm3 (1.8-7.7) H 01/30/17 00:52 POC ABG pH 7.117 (7.35-7.45) L 01/30/17 03:08 POC ABG pCO2 87.1 (35-45) H 01/30/17 03:08 POC ABG pO2 73 (80-105) L 01/30/17 03:08 POC ABG HCO3 28.1 01/30/17 03:08 POC ABG Total CO2 31 01/30/17 03:08 POC ABG O2 Sat 87 01/30/17 03:08 POC ABG Base Excess -1 01/30/17 03:08 FiO2 40 % 01/30/17 03:08 Sodium 137 mmol/L (137-145) 01/30/17 00:52 Potassium 5.2 mmol/L (3.6-5.0) H D 01/30/17 00:52 Chloride 98.7 mmol/L (98-107) 01/30/17 00:52 Carbon Dioxide 21 mmol/L (22-30) L 01/30/17 00:52 Anion Gap 23 mmol/L 01/30/17 00:52 BUN 44 mg/dL (7-17) H 01/30/17 00:52 Creatinine 4.7 mg/dL (0.7-1.2) H 01/30/17 00:52 Estimated GFR 11 ml/min 01/30/17 00:52 BUN/Creatinine Ratio 9.36 % 01/30/17 00:52 Glucose 197 mg/dL (65-100) H 01/30/17 00:52 POC Glucose 210 (70-105) H 01/29/17 22:07 Calcium 8.0 mg/dL (8.4-10.2) L 01/30/17 00:52 Total Bilirubin 0.2 mg/dL (0.1-1.2) 01/30/17 00:52 AST 15 units/L (5-40) 01/30/17 00:52 ALT 9 units/L (7-56) 01/30/17 00:52 Alkaline Phosphatase 96 units/L (35-129) 01/30/17 00:52 Total Protein 7.5 g/dL (6.3-8.2) 01/30/17 00:52 Albumin 2.6 g/dL (3.9-5) L 01/30/17 00:52 Albumin/Globulin Ratio 0.5 % 01/30/17 00:52
[2017-01-30] MEDS ORDERED: HEPARIN IV PRN (18:39)
--- NOTE | 2017-01-30 21:48 | Consultation ---
History of Present Illness Consult date: 01/30/17 Reason for consult: COPD (Respiratory failure post op) History of present illness: This is 61 year old female history of COPD,Endstage renal disease on hemodialysis admitted for permacath placement.Patient intubated and placed on mechanical ventilation. Recovery from Anesthesia slow, Patient stayed on mechanical ventilation longer than expected and patient susequently extubated and placed on BIPAP. Patient presently on 3 litres O2.O2 satuaration 99%,Patient morbidly obese, hyperlipidemia. History of smoking 1 pack a day for many years. Says stopped smoking from last november. Used to drink alcohol. Not drinking alcohol for many years.Denies drug abuse. 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 No known drug allergies.Patient alert, awake and resting on 3 litres O2. Patient morbidly obese, delayed recovery from anesthesia, delayed extubation post Op, patient may have sleep apnea. Recommend sleep study as out patient. Past History Past Medical History: anemia, diabetes, dialysis, ESRD, GERD, hypertension, hyperlipidemia, renal failure Social history: lives with family. denies: smoking, alcohol abuse, IV drug use Medications and Allergies Allergies Allergy/AdvReac Type Severity Reaction Status Date / Time No Known Allergies Allergy Unverified 01/25/17 09:02 Home Medications Medication Instructions Recorded Confirmed Last Taken Type ALBUTEROL Inhaler [ProAir HFA 2 puff IH QID PRN 01/25/17 01/25/17 01/28/17 18: 00 History Inhaler] Aspirin [Adult Low Dose Aspirin EC] 81 mg PO QDAY 01/25/17 01/25/17 01/28/17 History AtorvaSTATin [Lipitor] 40 mg PO QDAY 01/25/17 01/25/17 01/28/17 History Calcium Acetate 667 mg PO TID 01/25/17 01/25/17 01/28/17 History Gabapentin 300 mg PO BID 01/25/17 01/29/17 01/27/17 History Ipratropium (Nf) [Atrovent HFA 2 puff IH BID 01/25/17 01/25/17 01/28/17 19:30 History 17MCG/PUFF] Midodrine HCl 10 mg PO QDAY 01/25/17 01/29/17 01/28/17 09:30 History HYDROcodone/APAP 7.5-325 [[place] 1 each PO Q6HR PRN #60 tablet 01/29/17 Unknown Rx 7.5/325] ALBUTEROL NEB's [Proventil 0.083% 2.5 mg IH Q3HRT PRN #30 nebu 01/30/17 Unknown Rx NEBS] Azithromycin [Zithromax Z-ADOLFO] 1 dose PO DAILY #1 pack 01/30/17 Unknown Rx methylPREDNISolone [Medrol] 1 dose PO DAILY #1 pack 01/30/17 Unknown Rx Active Meds: Active Medications Acetaminophen (Tylenol) 650 mg PO Q4H PRN PRN Reason: Pain MILD(1-3)/Fever >100.5/OSMAN Albuterol (Proventil) 2.5 mg IH Q3HRT PRN PRN Reason: Shortness Of Breath Albuterol/Ipratropium (Duoneb 0.5 Mg-3 Mg/3 Ml Soln) 1 ampul IH Q6HRT [facility] Last Admin: 01/30/17 14:10 Dose: 1 ampul Bisacodyl (Dulcolax) 10 mg [place] QDAY PRN PRN Reason: Constipation unrelieved by MOM Calcium Acetate (Phoslo) 667 mg PO TIDAC [facility] Last Admin: 01/30/17 11:57 Dose: 667 mg Famotidine (Pepcid) 20 mg IV DAILY [facility] Heparin Sodium (Porcine) (Heparin) 5,000 unit IV KATHARINA PRN PRN Reason: hemodialysis Last Admin: 01/30/17 19:31 Dose: 5,000 unit Hydromorphone HCl (Dilaudid) 0.5 mg IV Q3H PRN PRN Reason: Pain , Severe (7-10) Sodium Chloride (Nacl 0.9% 1000 Ml) 1,000 mls @ 75 mls/hr IV DIRECT [facility] Levofloxacin/Dextrose (Levaquin 500mg/100ml) 500 mg in 100 mls @ 100 mls/hr IV Q48H [facility] Last Admin: 01/30/17 12:03 Dose: 100 mls/hr Sodium Chloride (Nacl 0.9%) 100 mls @ 999 mls/hr IV KATHARINA PRN PRN Reason: Hypotension Influenza Virus Vaccine Quadrival (Fluarix Quad [id number](36 Mos+)) 60 mcg IM .ONCE ONE Stop: 01/31/17 12:01 Magnesium Hydroxide (Milk Of Magnesia) 30 ml PO Q4H PRN PRN Reason: Constipation Methylprednisolone Sodium Succinate (Solu-Medrol) 40 mg IV Q8H [facility] Last Admin: 01/30/17 02:00 Dose: 40 mg Midodrine (Proamatine) 10 mg PO BID [facility] Ondansetron HCl (Zofran) 4 mg IV Q8H PRN PRN Reason: N/V unrelieved by Reglan Oxycodone/Acetaminophen (Percocet 5/325) 1 tab PO Q6H PRN PRN Reason: Pain, Moderate (4-6) Pneumococcal Polyvalent Vaccine (Pneumovax 23) 0.5 ml IM .ONCE ONE Stop: 01/31/17 12:01 Review of Systems All systems: negative Physical Examination Vital signs: Vital Signs Temp Pulse Resp BP Pulse Ox 99.1 F 76 16 122/64 88 01/29/17 06:45 01/29/17 06:45 01/29/17 06:45 01/29/17 06:45 01/29/17 06:45 General appearance: no acute distress, alert ENT: oropharynx moist Neck: supple, no JVD Ascultation: Bilateral: diminished breath sounds Cardiovascular: regular rate and rhythm Gastrointestinal: normoactive bowel sounds, soft, non-tender Integumentary: normal Extremities: other (Graft left hand.) Musculoskeletal: other (Can not evaluate at this time.) Gait: other (Can not evaluate at this time.) normal mental status, non-focal exam, pupils equal and round, CN II-XII normal mood appropriate Results - Laboratory Findings CBC and BMP: 01/30/17 00:52 01/30/17 00:52 ABG POC ABG pH 7.117 (7.35-7.45) L 01/30/17 03:08 POC ABG pCO2 87.1 (35-45) H 01/30/17 03:08 POC ABG pO2 73 (80-105) L 01/30/17 03:08 POC ABG HCO3 28.1 01/30/17 03:08 POC ABG Total CO2 31 01/30/17 03:08 POC ABG O2 Sat 87 01/30/17 03:08 Abnormal lab findings: Abnormal Labs 01/29/17 01/29/17 01/29/17 07:04 11:07 22:07 RBC Hgb Hct MCH MCHC RDW Lymph % (Auto) Seg Neutrophils % Seg Neutrophils # POC ABG pH POC ABG pCO2 POC ABG pO2 Potassium Carbon Dioxide BUN Creatinine Glucose POC Glucose 114 H 184 H 210 H Calcium Albumin 01/30/17 01/30/17 01/30/17 00:46 00:52 00:52 RBC 2.71 L Hgb 7.3 L Hct 25.6 L MCH 27 L MCHC 29 L RDW 19.1 H Lymph % (Auto) 10.9 L Seg Neutrophils % 84.3 H Seg Neutrophils # 9.0 H POC ABG pH 7.108 L POC ABG pCO2 89.5 H POC ABG pO2 120 H Potassium 5.2 H D Carbon Dioxide 21 L BUN 44 H Creatinine 4.7 H Glucose 197 H POC Glucose Calcium 8.0 L Albumin 2.6 L 01/30/17 01/30/17 01/30/17 03:08 08:55 13:03 RBC Hgb Hct MCH MCHC RDW Lymph % (Auto) Seg Neutrophils % Seg Neutrophils # POC ABG pH 7.117 L POC ABG pCO2 87.1 H POC ABG pO2 73 L Potassium Carbon Dioxide BUN Creatinine Glucose POC Glucose 131 H 140 H Calcium Albumin 01/30/17 15:22 RBC Hgb Hct MCH MCHC RDW Lymph % (Auto) Seg Neutrophils % Seg Neutrophils # POC ABG pH POC ABG pCO2 POC ABG pO2 Potassium Carbon Dioxide BUN Creatinine Glucose POC Glucose 169 H Calcium Albumin Assessment and Plan This is 61 year old female history of COPD,Endstage renal disease on hemodialysis admitted for permacath placement.Patient intubated and placed on mechanical ventilation. Recovery from Anesthesia slow, Patient stayed on mechanical ventilation longer than expected and patient susequently extubated and placed on BIPAP. Patient presently on 3 litres O2.O2 satuaration 99%,Patient morbidly obese, hyperlipidemia. History of smoking 1 pack a day for many years. Says stopped smoking from last november. Used to drink alcohol. Not drinking alcohol for many years.Denies drug abuse. 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 No known drug allergies.Patient alert, awake and resting on 3 litres O2. Patient morbidly obese, delayed recovery from anesthesia, delayed extubation post Op, patient may have sleep apnea. Recommend sleep study as out patient - Patient Problems (1) Morbid obesity with BMI of 40.0-44.9, adult Current Visit: Yes Status: Acute Plan to address problem: Nutritional evaluation for weight reduction diet. (2) Obstructive sleep apnea Current Visit: Yes Status: Acute Plan to address problem: Recommend sleep study as out patient. (3) Acute respiratory failure with hypoxia Current Visit: Yes Status: Acute Plan to address problem: Continue O2 3 litres. BIPAP during night time and Prn during day time. Continue I/V solumedral Continue S/C Heparin. Albuterol/atrovent aerosol treatments. Continue famotidine. (4) COPD exacerbation Current Visit: Yes Status: Acute Plan to address problem: O2 supplementation 3 litres. Albuterol/atrovent aerosol treatments q 6 hours. Continue I/V solumedral. (5) ESRD (end stage renal disease) on dialysis Current Visit: Yes Status: Chronic Plan to address problem: Management as per nephrology.
[2017-01-30] MEDS: PROAMATINE PO SCH (22:52)
[2017-01-31] MEDS: DUONEB 0.5 MG-3 MG/3 ML SOLN IH SCH ×2 (01:50→08:07)
--- NOTE | 2017-01-31 07:42 | Progress Note ---
Assessment and Plan - Patient Problems (1) Hyperkalemia Status: Acute Plan to address problem: Improved. (2) ESRD (end stage renal disease) on dialysis Status: Chronic Plan to address problem: Continue hemodialysis TTS schedule. (3) Anemia of renal disease Status: Chronic Plan to address problem: Epogen prn. (4) Acute respiratory failure with hypoxia Status: Acute Plan to address problem: Evaluated by Pulmonary. (5) COPD exacerbation Status: Acute Subjective Date of service: 01/31/17 Principal diagnosis: Delayed emergence from anesthesia Interval history: No new complaint. Objective - Vital Signs Vital signs: Vital Signs - 12hr 01/30/17 01/30/17 01/30/17 19:45 21:40 21:45 Temperature 98.5 F Pulse Rate 76 Pulse Rate [ 73 Anterior Bilateral Throughout] Pulse Rate [ 76 Right Radial] Respiratory 20 Rate Respiratory 16 Rate [Anterior Bilateral Throughout] Blood Pressure 96/46 Blood Pressure 123/56 [Left Arm] O2 Sat by Pulse 99 Oximetry 01/30/17 01/30/17 01/31/17 22:04 22:05 00:58 Temperature 98.7 F Pulse Rate Pulse Rate [ 74 Anterior Bilateral Throughout] Pulse Rate [ 72 Right Radial] Respiratory 18 Rate Respiratory 18 Rate [Anterior Bilateral Throughout] Blood Pressure Blood Pressure 120/58 [Left Arm] O2 Sat by Pulse 97 99 Oximetry 01/31/17 05:26 Temperature 97.9 F Pulse Rate Pulse Rate [ Anterior Bilateral Throughout] Pulse Rate [ 71 Right Radial] Respiratory 99 H Rate Respiratory Rate [Anterior Bilateral Throughout] Blood Pressure Blood Pressure 116/58 [Left Arm] O2 Sat by Pulse 99 Oximetry - General Appearance General appearance: well-developed, well-nourished, appears stated age, obese, other (no distress, right IJ tunnel catheter) EENT: PERRL, mucous membranes moist, hearing intact Neck: supple Respiratory: Present: Clear to Ascultation Cardiology: regular, S1S2, no murmurs Gastrointestinal: normoactive bowel sounds, no tenderness, obese Integumentary: no rash, warm and dry Neurologic: no focal deficit, CN 3-12 intact Musculoskeletal: other (LE edema noted, left arm AVG) Psychiatric: cooperative - Lab 01/31/17 07:05 01/31/17 07:05 Most recent lab results Calcium 8.0 mg/dL (8.4-10.2) L 01/30/17 00:52
[2017-01-31 07:47] LABS: Basophils % (Auto) 0.4 % (0.0-1.8); Eosinophils % (Auto) 0.2 % (0.0-4.3); Hematocrit 21.6 % (30.3-42.9); Hemoglobin 6.6 gm/dl (10.1-14.3); Mean Corpuscular HGB Conc 30 % (30-34); Mean Corpuscular Hemoglobin 28 pg (28-32); Mean Corpuscular Volume 92 fl (79-97); Platelet Count 159 K/mm3 (140-440); Red Blood Count 2.35 M/mm3 (3.65-5.03); Red Cell Distribution Width 18.7 % (13.2-15.2); White Blood Count 7.4 K/mm3 (4.5-11.0)
[2017-01-31 08:04] LABS: BUN/Creatinine Ratio 8.4; Calcium 7.9 mg/dL (8.4-10.2); Chloride 95.7 mmol/L (98-107); Potassium 4.5 mmol/L (3.6-5.0)
[2017-01-31] MEDS: PHOSLO PO SCH ×2 (08:20→13:51)
[2017-01-31] MEDS ORDERED: NACL 0.9% 500 ML 500 ML IV ONE (08:30)
[2017-01-31 09:13] LABS: ISTAT Base Excess 0; ISTAT HCO3 26.4; ISTAT PCO2 57.2 (35-45); ISTAT PH 7.273 (7.35-7.45); ISTAT PO2 39 (80-105); ISTAT SO2 64; ISTAT TCO2 28
[2017-01-31] MEDS ORDERED: PEPCID IV SCH (10:00)
[2017-01-31] MEDS: PROAMATINE PO SCH (10:08)
[2017-01-31] MEDS ORDERED: PNEUMOVAX 23 IM ONE (12:00)
[2017-01-31] MEDS ORDERED: FLUARIX QUAD 2016-2017(36 MOS+) IM ONE (12:00)
[2017-01-31 14:01] VITALS: BP 154/79
== END 2017-01-31 13:56 | disposition home health service (06) | DRG 673 ==
LOC: OR 06:05 → 4A 17:30
PROVIDERS: ADMIT Internal Medicine; ATTEND Internal Medicine
PROC: 03180KD Bypass Left Brachial Artery to Upper Arm Vein with Nonautologous Tissue Substitute, Open Approach (ICD-10-PCS; principal; 2017-01-29)
PROC: 4A033R1 Measurement of Arterial Saturation, Peripheral, Percutaneous Approach (ICD-10-PCS; 2017-01-30)
PROC: 5A1D00Z (ICD-10-PCS; 2017-01-30)
PROC: 5A1935Z Respiratory Ventilation, Less than 24 Consecutive Hours (ICD-10-PCS; 2017-01-30)
PROC: 0BH17EZ Insertion of Endotracheal Airway into Trachea, Via Natural or Artificial Opening (ICD-10-PCS; 2017-01-30)
PROC: 5A09357 Assistance with Respiratory Ventilation, Less than 24 Consecutive Hours, Continuous Positive Airway Pressure (ICD-10-PCS; 2017-01-30)
DX: I12.0 Hypertensive chronic kidney disease with stage 5 chronic kidney disease or end stage renal disease (principal); J96.01 Acute respiratory failure with hypoxia; N18.6 End stage renal disease; I95.9 Hypotension, unspecified; J44.1 Chronic obstructive pulmonary disease with (acute) exacerbation; G62.9 Polyneuropathy, unspecified; F17.200 Nicotine dependence, unspecified, uncomplicated; J44.9 Chronic obstructive pulmonary disease, unspecified; E78.5 Hyperlipidemia, unspecified; E66.2 Morbid (severe) obesity with alveolar hypoventilation; D63.1 Anemia in chronic kidney disease; Z99.2 Dependence on renal dialysis; Z68.42 Body mass index [BMI] 45.0-49.9, adult; Z82.49 Family history of ischemic heart disease and other diseases of the circulatory system
CPT/HCPCS: 36415; 36600; 80048; 80053; 82803; 82962; 84132; 85025; 86850; 86900; 86901; 86920; 90686; 90732; 94002; 94003; 94640; 94660; 94760; 99406; C1768; J0330; J0690; J1100; J1644; J1956; J2250; J2310; J2405; J2704; J2710; J2920; J3010; J3490; J7030; J7040